=== PATIENT | female | born 1975 | race Caucasian/White ===

== ENCOUNTER 2021-12-22 12:13 | Inpatient (IN) | payer BC ==
[~2021-12-22] VITALS: Ht 162.5 cm; Wt 54.2 kg
[2021-12-22 12:31] VITALS: BP 155/98
[2021-12-22 13:01] LABS: BASO % 0.5 % (0.0-1.0); EOS # 0.1 10*3/uL (0.0-0.4); EOS % 1.4 % (1.0-4.0); HEMATOCRIT 41.2 % (37.0-47.0); LYMPH # 1.8 10*3/uL (1.3-4.4); LYMPH % 23.1 % (27.0-41.0); MEAN CELL VOLUME 98.8 fl (81.0-99.0); MEAN CORPUSCULAR HGB 33.1 pg (27.0-31.0); MEAN CORPUSCULAR HGB CONC 33.5 g/dl (33.0-37.0); MEAN PLATELET VOLUME 9.2 fl (9.6-12.3); MONO # 0.7 10*3/uL (0.1-1.0); MONO % 8.8 % (3.0-9.0); NEUT # 5.1 10*3/uL (2.3-7.9); NEUT % 65.7 % (47.0-73.0); PLATELET COUNT AUTOMATED 321 10*3/uL (130-400); RED BLOOD COUNT 4.17 10*6/uL (4.10-5.10); RED CELL DISTRI WIDTH 13.9 % (0-14.5); WHITE BLOOD COUNT 7.8 10*3/uL (4.8-10.8)
[2021-12-22 13:18] LABS: ALKALINE PHOSPHATASE 330 U/L (45-117); BUN 11 mg/dl (7-24); CHLORIDE 103 mmol/L (98-107); CREATININE 0.61 mg/dL (0.55-1.02); LIPASE 1370 U/L (73-393); SGPT/ALT 350 U/L (12-78); SODIUM 137 mmol/L (136-145); TOTAL PROTEIN 7.3 gm/dL (6.4-8.2)
[2021-12-22 13:21] LABS: SGOT/AST 993 IU/L (3-35)
[2021-12-22] MEDS ORDERED: METOPROLOL SUCC50 M1 PO (13:24)
[2021-12-22] MEDS ORDERED: AMLODIPINE BESYL5 MG PO (13:24)
[2021-12-22] MEDS ORDERED: OMEPRAZOLE MAGN20 MG PO (13:25)
[2021-12-22] MEDS ORDERED: WELLBUTRIN SR200 MG PO (16:05)
[2021-12-22 16:49] VITALS: BP 142/85
[2021-12-22 17:00] VITALS: BP 147/98
[2021-12-22 17:30] LABS: BILIRUBIN Negative (Negative); BLOOD 3+ (Negative); CLARITY Clear (Clear); COLOR Yellow (Yellow); GLUCOSE Negative (Negative); KETONE 2+ (Negative); LEUKO ESTERASE 1+ (Negative); NITRITE Negative (Negative); SPECIFIC GRAVITY 1.015 (1.001-1.030)
[2021-12-22 17:45] LABS: BACTERIA 3+; EPITHELIAL CELLS TNTC
[2021-12-22 20:00] VITALS: BP 147/96
[2021-12-23] VITALS: BP 130/80
[2021-12-23 05:34] LABS: ALKALINE PHOSPHATASE 294 U/L (45-117); BUN 3 mg/dl (7-24); CHLORIDE 106 mmol/L (98-107); CHOLESTEROL 227 mg/dL (<200); CREATININE 0.41 mg/dL (0.55-1.02); LDL CHOLESTEROL 120 mg/dL (9-159); POTASSIUM 3.4 mmol/L (3.5-5.1); SGOT/AST 451 IU/L (3-35); SGPT/ALT 266 U/L (12-78); SODIUM 139 mmol/L (136-145); TOTAL PROTEIN 6.2 gm/dL (6.4-8.2); TRIGLYCERIDES 223 mg/dl (<150)
[2021-12-23 05:35] LABS: LIPASE 2958 U/L (73-393)
[2021-12-23 06:32] LABS: BASO % 0.4 % (0.0-1.0); EOS # 0.1 10*3/uL (0.0-0.4); EOS % 1.1 % (1.0-4.0); HEMATOCRIT 38.1 % (37.0-47.0); LYMPH # 1.4 10*3/uL (1.3-4.4); LYMPH % 16.7 % (27.0-41.0); MEAN CELL VOLUME 100.5 fl (81.0-99.0); MEAN CORPUSCULAR HGB 33.2 pg (27.0-31.0); MEAN CORPUSCULAR HGB CONC 33.1 g/dl (33.0-37.0); MEAN PLATELET VOLUME 10.3 fl (9.6-12.3); MONO # 0.5 10*3/uL (0.1-1.0); MONO % 6.1 % (3.0-9.0); NEUT # 6.3 10*3/uL (2.3-7.9); NEUT % 75.2 % (47.0-73.0); PLATELET COUNT AUTOMATED 292 10*3/uL (130-400); RED BLOOD COUNT 3.79 10*6/uL (4.10-5.10); RED CELL DISTRI WIDTH 13.8 % (0-14.5); WHITE BLOOD COUNT 8.3 10*3/uL (4.8-10.8)
[2021-12-23 08:00] VITALS: BP 146/94
[2021-12-23 12:00] VITALS: BP 145/97
[2021-12-23 14:03] LABS: BILIRUBIN Negative (Negative); BLOOD 1+ (Negative); CLARITY Clear (Clear); COLOR Yellow (Yellow); GLUCOSE Negative (Negative); KETONE 2+ (Negative); LEUKO ESTERASE Negative (Negative); NITRITE Negative (Negative); PH 6.5 (4.5-8.0); UROBILINOGEN 0.2 E.U./dl (0.0-1.0)
[2021-12-23 14:16] LABS: BACTERIA 1+
[2021-12-23 16:00] VITALS: BP 140/93
[2021-12-23 20:00] VITALS: BP 134/89
[2021-12-24] VITALS: BP 119/78
[2021-12-24 05:35] LABS: ALKALINE PHOSPHATASE 251 U/L (45-117); BUN 4 mg/dl (7-24); CHLORIDE 105 mmol/L (98-107); CREATININE 0.61 mg/dL (0.55-1.02); LIPASE 1053 U/L (73-393); POTASSIUM 3.6 mmol/L (3.5-5.1); SGOT/AST 149 IU/L (3-35); SGPT/ALT 172 U/L (12-78); SODIUM 139 mmol/L (136-145); TOTAL PROTEIN 6.5 gm/dL (6.4-8.2)
[2021-12-24 06:23] LABS: BASO % 0.4 % (0.0-1.0); EOS # 0.2 10*3/uL (0.0-0.4); EOS % 1.9 % (1.0-4.0); HEMATOCRIT 37.2 % (37.0-47.0); LYMPH # 2.4 10*3/uL (1.3-4.4); LYMPH % 30.4 % (27.0-41.0); MEAN CORPUSCULAR HGB 33.6 pg (27.0-31.0); MEAN CORPUSCULAR HGB CONC 33.6 g/dl (33.0-37.0); MONO # 0.7 10*3/uL (0.1-1.0); MONO % 9.2 % (3.0-9.0); NEUT # 4.5 10*3/uL (2.3-7.9); NEUT % 57.2 % (47.0-73.0); PLATELET COUNT AUTOMATED 287 10*3/uL (130-400); RED BLOOD COUNT 3.72 10*6/uL (4.10-5.10); RED CELL DISTRI WIDTH 13.9 % (0-14.5); WHITE BLOOD COUNT 7.9 10*3/uL (4.8-10.8)
[2021-12-24 07:06] LABS: HBSAG Negative (Negative); HEP B CORE AB, IGM Negative (Negative); HEPATITIS C ANTIBODY <0.1 (0.0-0.9)
[2021-12-24 08:00] VITALS: BP 119/78
[2021-12-24 12:00] VITALS: BP 124/82
[2021-12-24 16:00] VITALS: BP 116/81
[2021-12-25] VITALS: BP 123/80
[2021-12-25 05:20] LABS: ALKALINE PHOSPHATASE 241 U/L (45-117); BUN 6 mg/dl (7-24); CHLORIDE 105 mmol/L (98-107); CREATININE 0.56 mg/dL (0.55-1.02); LIPASE 657 U/L (73-393); POTASSIUM 2.9 mmol/L (3.5-5.1); SGOT/AST 119 IU/L (3-35); SGPT/ALT 141 U/L (12-78); SODIUM 139 mmol/L (136-145); TOTAL PROTEIN 6.4 gm/dL (6.4-8.2)
[2021-12-25 06:05] LABS: BASO % 0.4 % (0.0-1.0); EOS # 0.2 10*3/uL (0.0-0.4); EOS % 2.2 % (1.0-4.0); LYMPH # 2.6 10*3/uL (1.3-4.4); LYMPH % 32.8 % (27.0-41.0); MEAN CELL VOLUME 101.1 fl (81.0-99.0); MEAN CORPUSCULAR HGB CONC 33.6 g/dl (33.0-37.0); MONO # 0.6 10*3/uL (0.1-1.0); MONO % 7.9 % (3.0-9.0); NEUT # 4.5 10*3/uL (2.3-7.9); NEUT % 56.1 % (47.0-73.0); PLATELET COUNT AUTOMATED 275 10*3/uL (130-400); RED BLOOD COUNT 3.56 10*6/uL (4.10-5.10); RED CELL DISTRI WIDTH 14.2 % (0-14.5); WHITE BLOOD COUNT 8.1 10*3/uL (4.8-10.8)
[2021-12-25 08:00] VITALS: BP 132/94
[2021-12-25 12:00] VITALS: BP 122/91
[2021-12-25 15:47] VITALS: BP 130/93
[2021-12-25 20:00] VITALS: BP 120/83
[2021-12-25 21:10] LABS: BUN 6 mg/dl (7-24); CHLORIDE 110 mmol/L (98-107); CREATININE 0.68 mg/dL (0.55-1.02); SODIUM 142 mmol/L (136-145)
[2021-12-25 21:19] LABS: POTASSIUM 4.2 mmol/L (3.5-5.1)
[2021-12-26] VITALS: BP 129/89
[2021-12-26 06:28] LABS: BUN 5 mg/dl (7-24); CHLORIDE 109 mmol/L (98-107); CREATININE 0.49 mg/dL (0.55-1.02); LIPASE 709 U/L (73-393); POTASSIUM 3.9 mmol/L (3.5-5.1); SODIUM 141 mmol/L (136-145)
[2021-12-26 08:00] VITALS: BP 127/87
[2021-12-26] MEDS ORDERED: PERCOCET 5-3251 EACH PO (08:55)
== END 2021-12-26 09:38 | disposition home or self-care (01) | DRG 439 ==
LOC: ED 12:13 → EDHOLD 15:39 → 4E 15:39
PROVIDERS: Emergency Medicine; Internal Medicine; Student in an Organized Health Care Education/Training Program; ADMIT Internal Medicine; ATTEND Internal Medicine
DX: K85.90 Acute pancreatitis without necrosis or infection, unspecified (principal); E44.1 Mild protein-calorie malnutrition; R82.71 Bacteriuria; F32.9 Major depressive disorder, single episode, unspecified; I10 Essential (primary) hypertension; K21.9 Gastro-esophageal reflux disease without esophagitis; R74.01 Elevation of levels of liver transaminase levels; E80.6 Other disorders of bilirubin metabolism; R31.9 Hematuria, unspecified; F32.A Depression, unspecified; D75.89 Other specified diseases of blood and blood-forming organs; E87.6 Hypokalemia; E83.51 Hypocalcemia; E83.42 Hypomagnesemia; E83.39 Other disorders of phosphorus metabolism; E78.1 Pure hyperglyceridemia; F41.9 Anxiety disorder, unspecified; Z90.49 Acquired absence of other specified parts of digestive tract; Z88.6 Allergy status to analgesic agent; Z88.1 Allergy status to other antibiotic agents; Z88.0 Allergy status to penicillin; Z88.8 Allergy status to other drugs, medicaments and biological substances; Z90.721 Acquired absence of ovaries, unilateral; Z83.79 Family history of other diseases of the digestive system; Z68.20 Body mass index [BMI] 20.0-20.9, adult